=== PATIENT | female | born 1975 | race Caucasian/White ===

== ENCOUNTER 2022-02-07 10:01 | Emergency (ER) | payer MEDICARE, OTHER ==
[2022-02-07 11:31] LABS: BASOPHIL 0.3 % (0-2); HCT 38.6 % (37.0-47.0); LYMPHOCYTE 29.3 % (15-48); MCH 30.4 pg (25.0-31.0); MCHC 33.7 g/dL (32.0-36.0); MCV 90.4 fL (78.0-100.0); MONOCYTE 8.3 % (0-12); MPV 11.3 fL (6.0-9.5); NEUTROPHIL 60.8 % (41-80); NRBC 0; PLT 174 K/uL (150-400); RBC 4.27 M/uL (4.20-5.40); RDW 13.1 % (11.5-14.0)
[2022-02-07 11:51] LABS: BUN/CREAT RATIO (CALC) 21.3 RATIO; CREATININE 0.75 mg/dL (0.51-0.95); POTASSIUM 3.6 mmol/L (3.5-5.1)
[2022-02-07] MEDS ORDERED: ALLEGRA-D 12 H1 EACH PO (13:56)
== END 2022-02-07 14:06 | disposition home or self-care (01) ==
LOC: FER 10:01
PROVIDERS: Emergency Medicine
DX: J06.9 Acute upper respiratory infection, unspecified (principal); E78.5 Hyperlipidemia, unspecified; K21.9 Gastro-esophageal reflux disease without esophagitis; Z28.310 Unvaccinated for COVID-19; Z88.1 Allergy status to other antibiotic agents; Z79.899 Other long term (current) drug therapy
CPT/HCPCS: 36415; 71275; 80048; 85025; 93005; J2405; Q9967